=== PATIENT | female | born 1970 | race Caucasian/White ===

== ENCOUNTER 2019-06-17 10:57 | Outpatient (REF) | payer BC, SELFPAY ==
[2019-06-17 22:20] LABS: Abs Immature Grans 0.01 k/cumm (0.0-0.09); Absolute Basophil Count 0.05 k/cumm (0.0-0.2); Absolute Eosinophil Count 0.09 k/cumm (0.0-0.7); Absolute Lymphocyte Count 1.01 k/cumm (1.2-3.4); Absolute Monocyte Count 0.39 k/cumm (0.11-0.7); Absolute Neutrophil Count 2.97 k/cumm (1.2-6.7); Basophils % 1.1; HCT 38.9 % (36.0-46.0); HGB 12.8 g/dL (12.0-15.5); Immature Grans % 0.2; Lymphocytes % 22.3; Mean Corp. HGB Concentration 32.9 g/dL (32.0-36.0); Mean Corpuscular Hemoglobin 30.5 pg (27.0-33.0); Mean Corpuscular Volume 92.8 fL (80-95); Mean Platelet Volume 10.1 fL (8.0-11.0); Monocytes % 8.6; Neutrophils % 65.8; Platelet Count 321 x1000/uL (130-400); RBC 4.19 m/cumm (4.00-5.20); RBC Distribution Width 13.5 % (11.7-14.6); White Blood Cell Count 4.52 k/cumm (4.4-10.8)
[2019-06-17 22:39] LABS: TSH (W/Ref FT4) 1.74 uIU/mL (0.36-3.74)
== END 2019-06-17 11:17 ==
LOC: NCHCO 10:57
PROVIDERS: PCP Nurse Practitioner Family; Visit Provider Family Medicine
DX: Z00.00 Encounter for general adult medical examination without abnormal findings (principal); I10 Essential (primary) hypertension
CPT/HCPCS: 82306; 84443; 85025

== ENCOUNTER 2021-08-04 14:59 | Outpatient (REF) | payer BC, SELFPAY ==
[2021-08-04 15:54] LABS: Anion Gap 9.5 mmol/L (3-11); BUN 12 mg/dL (7-18); CO2 26.5 mmol/L (21.0-32.0); CREATININE 0.7 mg/dL (0.55-1.02); Calcium 8.9 mg/dL (8.5-10.1); Calculated LDL 110 mg/dL (<100); Chloride 105 mmol/L (98-107); Cholesterol 227 mg/dL (<200); Glucose 96 mg/dL (74-106); HDL Cholesterol 106 mg/dL (40-60); Potassium 4.3 mmol/L (3.5-5.1); Sodium 141 mmol/L (136-145); Triglyceride 57 mg/dL (<150)
[2021-08-04 16:01] LABS: Hemoglobin A1C 5.1 % (<5.7)
== END 2021-08-04 15:00 | disposition home or self-care (01) ==
LOC: NCHCN 14:59
PROVIDERS: PCP Nurse Practitioner Family; Visit Provider Nurse Practitioner Family
DX: I10 Essential (primary) hypertension (principal); Z13.220 Encounter for screening for lipoid disorders; Z13.1 Encounter for screening for diabetes mellitus
CPT/HCPCS: 80048; 80061; 83036

== ENCOUNTER 2023-10-21 11:57 | Outpatient (REF) | payer BC, SELFPAY ==
--- OUTSIDE RECORDS SUMMARY | 2023-10-21 12:00 | XMS_ITS | CCD ---
Author Name Unknown Address [address] [place] [id number] Organization Unknown Address [address], [place] [id number] Care Team Providers Care Tank Shop Supervisor Name Role Phone ALIS HUGGINS Attending Physician [phone] ALIS HUGGINS Rounding (Secondary) Physician [phone] Vital Signs Unknown or Not Available. Allergies Allergy Code Allergy Type Reaction Status PCN (penicillin) 0 Drug allergy Active SULFA (sulfonamide) 0 Drug allergy Act tisha Procedures Unknown or Not Available. History of Immunizations Unknown or Not Available. Problems Unknown or Not Available. Results Unknown or Not Available. Active Medications Unknown or Not Available. Medications Administered During Visit Unknown or Not Available. Encounters Encounter Diagnosis Diagnosis Code Start Date Encounter for gynecological examination (general) (routine) without abnormal findings [id number] 09/04/2021 Social History Smoking Status Code Start Date End Date Never smoker [id number] Patient Decision Aids Unknown or Not Available. Discharge Instructions You were admitted to [facility] on 09/04/2021 08:45 with a principal diagnosis of Encounter for gynecological examination (general) (routine) without abnormal findings You were discharged from [facility] on 09/04/2021 08:46 Should you have any questions prior to discharge, please contact a member of your healthcare team. If you have left the hospital and have any questions, please contact your primary care physician. Chief Complaint and Reason For Visit Unknown or Not Available. Function Status Unknown or Not Available. Plan of Care Unknown or Not Available. Referral/Transition of Care Unknown or Not Available.
--- OUTSIDE RECORDS SUMMARY | 2023-10-21 12:00 | XMS_ITS | CCD ---
Author Name Unknown Address [address] [place] [id number] Organization Unknown Address [address] [place], [place] [id number] Care Team Providers Care Director Style Name Role Phone VAELNTINE MANPREET K Attending Physician [phone] Vital Signs Unknown or Not Available. 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 Discharge Instructions You were admitted to [facility] on 09/11/2023 08:30 with a principal diagnosis of Other noninflammatory disorders of ovary, fallopian tube and broad ligament You were discharged from [facility] on 09/11/2023 08:30 Should you have any questions prior to discharge, please contact a member of your healthcare team. If you have left the hospital and have any questions, please contact your primary care physician. Chief Complaint and Reason For Visit Chief Complaint Date of Onset LT OVARIAN ENLARGEMENT Function Status Unknown or Not Available. Plan of Care Unknown or Not Available. Referral/Transition of Care Unknown or Not Available.
--- OUTSIDE RECORDS SUMMARY | 2023-10-21 12:00 | XMS_ITS | CCD ---
Author Name Unknown Address [address] [place] [id number] Organization Unknown Address [address], [place] [id number] Care Team Providers Care Cigar Packing Examiner Name Role Phone MANPREET GRIJALVA Attending Physician [phone] MANPREET GRIJALVA Rounding (Secondary) Physicia n [phone] Vital Signs Unknown or Not Available. Allergies Allergy Code Allergy Type Reaction Status PCN (penicillin) 0 Drug allergy Active SULFA (sulfonamide) 0 Drug allergy Act tisha Procedures Unknown or Not Available. History of Immunizations Unknown or Not Available. Problems Unknown or Not Available. Results PAP THINPREP HPV REGARDLESS OF DX* - Collect Date/Time: 08/15/2023 18:25 Test Name Code Test Result Test Units Test Ref Rang e Report (See below) N/A Active Medications Unknown or Not Available. Medications Administered During Visit Unknown or Not Available. Encounters Encounter Diagnosis Diagnosis Code Start Date Gynecologic examination [id number] 08/15/20 23 Social History Smoking Status Code Start Date End Date Never smoker [id number] Patient Decision Aids Unknown or Not Available. Discharge Instructions You were admitted to [facility] on 08/15/2023 09:45 with a principal diagnosis of Encounter for gynecological examination (general) (routine) without abnormal findings You had the following tests done:PAP THINPREP HPV REGARDLESS OF DX* You were discharged from [facility] on 08/15/2023 09:46 Should you have any questions prior to [...]
[2023-10-21 16:13] LABS: ALT 22 U/L (14-59); AST 21 U/L (15-37); Albumin 3.8 g/dL (3.4-5.0); Alkaline Phosphatase 89 U/L (46-116); Anion Gap 10.4 mmol/L (3-11); BUN 13 mg/dL (7-18); Bilirubin, Total 0.5 mg/dL (0.2-1.0); CO2 26.6 mmol/L (21.0-32.0); CREATININE 0.7 mg/dL (0.55-1.02); Calcium 9.2 mg/dL (8.5-10.1); Chloride 104 mmol/L (98-107); Estimated GFR 102.07 (mL/min/1.73m2); Glucose 102 mg/dL (74-106); Sodium 141 mmol/L (136-145); TSH (W/Ref FT4) 2.78 uIU/mL (0.36-3.74); Total Protein 7.4 g/dL (6.4-8.2)
[2023-10-21 16:38] LABS: Calculated LDL 92 mg/dL (<100); Cholesterol 228 mg/dL (<200); HDL Cholesterol 127 mg/dL (40-60); Triglyceride 46 mg/dL (<150)
== END 2023-10-21 11:58 | disposition home or self-care (01) ==
LOC: NCHCN 11:57
PROVIDERS: PCP Nurse Practitioner Family; Visit Provider Nurse Practitioner Family
DX: Z00.00 Encounter for general adult medical examination without abnormal findings (principal); R00.0 Tachycardia, unspecified; Z13.220 Encounter for screening for lipoid disorders; Z13.1 Encounter for screening for diabetes mellitus; Z13.228 Encounter for screening for other metabolic disorders
CPT/HCPCS: 80053; 80061; 83036; 84443

== ENCOUNTER 2025-07-05 15:21 | Outpatient (REF) | payer BC, SELFPAY ==
[2025-07-05 15:54] LABS: HCT 40.3 % (36.0-46.0); HGB 13.2 g/dL (11.2-15.7); MCH 29.7 pg (27.0-33.0); MCHC 32.8 % (32.0-36.0); MCV 91 fL (80-95); MPV 10.2 fL (8.0-11.0); Platelet Count 283 10^3/uL (130-400); RBC 4.44 10^6/uL (3.93-5.22); RDW 13.4 % (11.7-14.6); RDW-SD 44.7 fL; WBC 4.54 10^3/uL (4.4-10.8)
[2025-07-05 16:12] LABS: Hemoglobin A1C 5.3 % (<5.7)
[2025-07-05 16:36] LABS: ALT 19 U/L (14-59); AST 19 U/L (15-37); Albumin 3.6 g/dL (3.4-5.0); Alkaline Phosphatase 85 U/L (46-116); Anion Gap 9.4 mmol/L (3-11); BUN 15 mg/dL (7-18); Bilirubin, Total 0.4 mg/dL (0.2-1.0); CO2 27.6 mmol/L (21.0-32.0); Calcium 9.0 mg/dL (8.5-10.1); Calculated LDL 121 mg/dL (<100); Chloride 104 mmol/L (98-107); Cholesterol 248 mg/dL (<200); Estimated GFR 109.33 (mL/min/1.73m2); Glucose 96 mg/dL (74-106); HDL Cholesterol 115 mg/dL (>or=50); Potassium 4.3 mmol/L (3.5-5.1); Sodium 141 mmol/L (136-145); Total Protein 7.1 g/dL (6.4-8.2); Triglyceride 60 mg/dL (<150)
== END 2025-07-05 15:22 | disposition home or self-care (01) ==
LOC: NCHCN 15:21
PROVIDERS: PCP Nurse Practitioner Family; Visit Provider Nurse Practitioner Family
DX: E66.9 Obesity, unspecified (principal); I10 Essential (primary) hypertension; R00.0 Tachycardia, unspecified
CPT/HCPCS: 80053; 80061; 85027; 83036